=== PATIENT | male | born 2000 | race Hispanic/Latino ===

== ENCOUNTER 2024-04-22 14:44 | Emergency (ER) | payer SELFPAY ==
[2024-04-22] MEDS ORDERED: Lidocaine 1% w/Epinephrine 1:200K 30 ML VIAL ONE (14:56)
== END 2024-04-22 15:19 | disposition home or self-care (01) ==
LOC: CSHERS 14:44
DX: S51.812A Laceration without foreign body of left forearm, initial encounter (principal); W26.0XXA Contact with knife, initial encounter
CPT/HCPCS: 12001